=== PATIENT | female | born 1950 | race Caucasian/White ===

== ENCOUNTER 2023-11-09 17:39 | Inpatient (IN) | payer MEDICARE, MEDICAID ==
[~2023-11-09] VITALS: Ht 167.6 cm; Wt 79.4 kg
[~2023-11-09 17:39] MED LIST: ADV100 IH; ALBU8.5H8 IH; AMLO-258 PO; CLON-598 PO; GABA-529 PO; LACT10SO95 PO; PANT20TA PO; SERT-158 PO
[2023-11-09 19:08] LABS: BASOPHILS % (AUTO) 0.5 % (0.0-2.0); EOSINOPHILS % (AUTO) 0.2 % (1.0-6.0); HEMATOCRIT 28.7 % (36-46); HEMOGLOBIN 8.9 g/dL (12.0-16.0); LYMPHOCYTES # (AUTO) 1.4 K/uL (1.0-4.8); LYMPHOCYTES % (AUTO) 15.4 % (22.0-44.0); MEAN CORPUSCULAR HEMOGLOBIN 20.4 pg (26.0-34.0); MEAN CORPUSCULAR VOLUME 66 fL (80-100); MONOCYTES % (AUTO) 10.6 % (2.0-9.0); NEUTROPHILS # (AUTO) 6.6 K/uL (1.8-7.7); NEUTROPHILS % (AUTO) 73.3 % (40.0-70.0); PLATELET COUNT (AUTO) 237 K/uL (150-450); RED BLOOD CELL COUNT(AUTO) 4.37 MIL/uL (4.00-5.20); RED CELL DISTRIBUTION WIDTH 21.8 % (11.5-14.5)
[2023-11-09 19:12] LABS: ANION GAP 12 mmol/L (8-16); CALCIUM, TOTAL 7.7 mg/dL (8.8-10.5); CARBON DIOXIDE 24 mmol/L (22-29); CHLORIDE 94 mmol/L (98-107); CREATININE 1.12 mg/dL (0.60-1.30); GLOMERULAR FILTR. RATE CALC 48 mL/min (>60); GLUCOSE,RANDOM 77 mg/dL (70-110); POTASSIUM 3.6 mmol/L (3.5-5.1); SODIUM SERUM 130 mmol/L (136-145); UREA NITROGEN, BLOOD 19 mg/dL (7-18)
[2023-11-09 19:22] LABS: LACTIC ACID 1.9 mmol/L (0.4-2.0)
[2023-11-09 19:26] LABS: TROPONIN I-HIGH SENSITIVITY 4 ng/L (<51)
[2023-11-09 19:28] LABS: ALANINE AMINOTRANSFERASE 30 U/L (12-78); ALKALINE PHOSPHATASE 87 U/L (46-116); ASPARTATE AMINOTRANSFERASE 39 U/L (15-37); BILIRUBIN,TOTAL 1.4 mg/dL (0.1-1.0); LIPASE < 10 U/L (16-77); TOTAL PROTEIN, SERUM 7.7 g/dL (6.4-8.2)
[2023-11-09 19:35] LABS: COVID AG,FIA SOURCE NASAL SWAB
[2023-11-09 19:36] LABS: APPEARANCE,URINE CLEAR (CLEAR); BILIRUBIN,URINE NEGATIVE (NEGATIVE); COLOR,URINE LIGHT YELLOW (YELLOW); GLUCOSE, URINE (UA) NEGATIVE (NEGATIVE); KETONES,URINE NEGATIVE (NEGATIVE); LEUKOCYTE ESTERASE ,URINE NEGATIVE (NEGATIVE); NITRATE,URINE NEGATIVE (NEGATIVE); OCCULT BLOOD,URINE NEGATIVE (NEGATIVE); PH,URINE 5.5 (5.0-8.0); PROTEIN,URINE NEGATIVE (NEGATIVE); SPECIFIC GRAVITIY, URINE 1.007 (1.003-1.030)
[2023-11-09 19:51] LABS: SARS-COV2 (COVID) ANTIGEN,FIA Negative (Negative)
[2023-11-09 20:00] LABS: BACTERIA,URINE None Seen /HPF (None Seen); RBC,URINE 0-2 /HPF (0-2); SQUAMOUS EPITHELIAL CELL,UR Few /LPF (None Seen); WBC,URINE 0-2 /HPF (0-5)
[2023-11-09] MEDS: ONDANSETRON HCL 4 MG/2 ML VIAL IVP ONE (20:15)
[2023-11-09] MEDS: SODIUM CHLORIDE 0.9% 1,000 ML IV ONE (20:16)
[2023-11-09] MEDS: HYDROmorphone HCL 2 MG/ML SYRINGE IVP ONE (20:16)
[2023-11-09] MEDS ORDERED: ALBUTEROL SULFATE HFA 90 MCG/PUFF 8 GM INHALER IH PRN (21:00)
[2023-11-09] MEDS ORDERED: ONDANSETRON HCL 4 MG/2 ML VIAL IVP PRN (21:00)
[2023-11-09] MEDS: LACTULOSE 20 GM/30 ML SOLUTION UDCUP PO SCH (21:44)
[2023-11-09] MEDS: GABAPENTIN 100 MG CAPSULE PO SCH (21:44)
[2023-11-09] MEDS: DOCUSATE SODIUM 100 MG CAPSULE PO SCH (21:45)
[2023-11-09] MEDS: SODIUM CHLORIDE 0.9% 500 ML IV SCH (21:45)
[2023-11-09 23:15] VITALS: BP 125/57; PULSE 72; RESP 19; TEMP 99.1
[2023-11-09] MEDS: CHLORHEXIDINE GLUCONATE 2% TOWELETTE [2'S/6'S] TP SCH (23:15)
[2023-11-09] MEDS: MORPHINE SULFATE 2 MG/ML SYRINGE IVP PRN (23:16)
[2023-11-10] VITALS (7 sets, daily range): BP systolic 83–118; BP diastolic 52–73; PULSE 63–122; RESP 12–25; TEMP 98.3–99.3
[2023-11-10] MEDS: CefTRIAXone 1 GM/DEXTROSE 50 ML IV SCH (04:57)
[2023-11-10 05:32] LABS: BASOPHILS % (AUTO) 0.5 % (0.0-2.0); EOSINOPHILS % (AUTO) 0.5 % (1.0-6.0); HEMOGLOBIN 9.1 g/dL (12.0-16.0); LYMPHOCYTES # (AUTO) 0.9 K/uL (1.0-4.8); LYMPHOCYTES % (AUTO) 15.7 % (22.0-44.0); MEAN CORPUSCULAR HEMOGLOBIN 20.3 pg (26.0-34.0); MEAN CORPUSCULAR HGB CONC 30.5 G/dL (31.0-37.0); MEAN CORPUSCULAR VOLUME 67 fL (80-100); MONOCYTES # (AUTO) 0.7 K/uL (0.1-1.0); MONOCYTES % (AUTO) 11.8 % (2.0-9.0); NEUTROPHILS % (AUTO) 71.5 % (40.0-70.0); PLATELET COUNT (AUTO) 218 K/uL (150-450); RED BLOOD CELL COUNT(AUTO) 4.49 MIL/uL (4.00-5.20); RED CELL DISTRIBUTION WIDTH 21.6 % (11.5-14.5); WHITE BLOOD COUNT (AUTO) 5.6 K/uL (4.5-11.0)
[2023-11-10 05:41] LABS: CALCIUM, TOTAL 7.7 mg/dL (8.8-10.5); CREATININE 0.92 mg/dL (0.60-1.30); MAGNESIUM 1.8 mg/dL (1.80-2.40); POTASSIUM 3.9 mmol/L (3.5-5.1)
[2023-11-10 06:07] LABS: RBC MORPHOLOGY COMMENT ABNORMAL RBC MORPH
[2023-11-10] MEDS: ClonazePAM 1 MG TABLET PO SCH (08:32)
[2023-11-10] MEDS: AmLODIPine BESYLATE 10 MG TABLET PO SCH (08:33)
[2023-11-10] MEDS: SERTRALINE HCL 50 MG TABLET PO SCH (08:34)
[2023-11-10] MEDS ORDERED: GADOTERATE MEGLUMINE 10 MMOL/20 ML VIAL IVP ONE (09:40)
[2023-11-10] MEDS ORDERED: MEBROFENIN TC99M/MCL ISOTOPE 1 EA INJ INJ ONE (11:10)
[2023-11-10] MEDS: FLUTICASONE/VILANTEROL 200-25 MCG/INH INHALER [14] IH SCH (15:03)
[2023-11-10] MEDS: GuaiFENesin/D-METHORPHAN [SUGAR-FREE] 200-20MG/10 ML SYRUP UDCUP PO PRN (15:03)
[2023-11-10] MEDS: SODIUM CHLORIDE 0.9% 250 ML IV ONE (20:17)
[2023-11-10] MEDS: AMIODARONE HCL 360 MG in DEXTROSE 5%-WATER 242.8 ML IV ONE (20:25)
[2023-11-10] MEDS: AMIODARONE HCL 150 MG in DEXTROSE 5%-WATER 97 ML IV ONE (20:25)
[2023-11-11] VITALS (9 sets, daily range): BP systolic 90–123; BP diastolic 21–70; PULSE 59–88; RESP 20–25; TEMP 98–99.5; O2SAT 93–96
[2023-11-11] MEDS: AMIODARONE HCL 540 MG in DEXTROSE 5%-WATER 239.2 ML IV ONE (02:01)
[2023-11-11 08:15] LABS: BASOPHILS % (AUTO) 0.3 % (0.0-2.0); EOSINOPHILS % (AUTO) 0.6 % (1.0-6.0); HEMATOCRIT 28.9 % (36-46); HEMOGLOBIN 8.8 g/dL (12.0-16.0); LYMPHOCYTES # (AUTO) 0.7 K/uL (1.0-4.8); LYMPHOCYTES % (AUTO) 12.5 % (22.0-44.0); MEAN CORPUSCULAR HEMOGLOBIN 20.4 pg (26.0-34.0); MEAN CORPUSCULAR HGB CONC 30.6 G/dL (31.0-37.0); MEAN CORPUSCULAR VOLUME 67 fL (80-100); MONOCYTES # (AUTO) 0.6 K/uL (0.1-1.0); MONOCYTES % (AUTO) 10.6 % (2.0-9.0); PLATELET COUNT (AUTO) 198 K/uL (150-450); RED BLOOD CELL COUNT(AUTO) 4.33 MIL/uL (4.00-5.20); RED CELL DISTRIBUTION WIDTH 22.3 % (11.5-14.5); WHITE BLOOD COUNT (AUTO) 5.2 K/uL (4.5-11.0)
[2023-11-11 08:16] LABS: ANION GAP 8 mmol/L (8-16); CALCIUM, TOTAL 7.5 mg/dL (8.8-10.5); CARBON DIOXIDE 27 mmol/L (22-29); CHLORIDE 101 mmol/L (98-107); CREATININE 0.76 mg/dL (0.60-1.30); GLOMERULAR FILTR. RATE CALC > 60 mL/min (>60); GLUCOSE,RANDOM 82 mg/dL (70-110); POTASSIUM 3.8 mmol/L (3.5-5.1); SODIUM SERUM 136 mmol/L (136-145); UREA NITROGEN, BLOOD 10 mg/dL (7-18)
[2023-11-11 08:19] LABS: RBC MORPHOLOGY COMMENT ABNORMAL RBC MORPH
[2023-11-11 08:25] LABS: CREATININE,URINE RANDOM 88.1 mg/dL (30.0-125.0)
[2023-11-11 08:28] LABS: ALANINE AMINOTRANSFERASE 25 U/L (12-78); ALBUMIN 2.4 g/dL (3.4-5.0); ALKALINE PHOSPHATASE 78 U/L (46-116); ASPARTATE AMINOTRANSFERASE 36 U/L (15-37); BILIRUBIN,TOTAL 1.2 mg/dL (0.1-1.0)
[2023-11-11] MEDS ORDERED: IPRATROPIUM BROMIDE 0.5 MG/2.5 ML NEB SOLUTION NEB PRN (14:45)
[2023-11-11] MEDS ORDERED: BENZONATATE 100 MG CAPSULE PO SCH (16:00)
[2023-11-11] MEDS: BENZONATATE 100 MG CAPSULE PO SCH ×2 (17:05→21:25)
[2023-11-11] MEDS: ACETAMINOPHEN 325 MG TABLET PO PRN (18:56)
[2023-11-11] MEDS: MethylPREDNISolone SOD SUCC 125 MG/2 ML VIAL IVP SCH (18:58)
[2023-11-11] MEDS ORDERED: AMIODARONE HCL 750 MG in DEXTROSE 5%-WATER 485 ML IV SCH (19:30)
[2023-11-11] MEDS: LEVALBUTEROL 0.63 MG/3 ML NEB SOLUTION NEB SCH (20:00)
[2023-11-11] MEDS: IPRATROPIUM BROMIDE 0.5 MG/2.5 ML NEB SOLUTION NEB SCH (20:00)
[2023-11-11] MEDS: GuaiFENesin SR 600 MG ER TABLET PO SCH (21:25)
[2023-11-11] MEDS: BUDESONIDE 0.5 MG/2 ML NEB SOLUTION NEB SCH (21:55)
[2023-11-12] VITALS (14 sets, daily range): BP systolic 92–106; BP diastolic 51–64; PULSE 49–68; RESP 16–22; TEMP 97.1–97.7; O2SAT 91–99
[2023-11-12] MEDS: MORPHINE SULFATE 2 MG/ML SYRINGE IVP PRN (00:17)
[2023-11-12 05:13] LABS: BASOPHILS % (AUTO) 0.1 % (0.0-2.0); EOSINOPHILS % (AUTO) 0 % (1.0-6.0); HEMATOCRIT 32.9 % (36-46); HEMOGLOBIN 10.1 g/dL (12.0-16.0); LYMPHOCYTES # (AUTO) 0.4 K/uL (1.0-4.8); LYMPHOCYTES % (AUTO) 7.6 % (22.0-44.0); MEAN CORPUSCULAR HEMOGLOBIN 20.7 pg (26.0-34.0); MEAN CORPUSCULAR HGB CONC 30.6 G/dL (31.0-37.0); MEAN CORPUSCULAR VOLUME 68 fL (80-100); MONOCYTES # (AUTO) 0.1 K/uL (0.1-1.0); MONOCYTES % (AUTO) 1.7 % (2.0-9.0); NEUTROPHILS # (AUTO) 5.2 K/uL (1.8-7.7); PLATELET COUNT (AUTO) 266 K/uL (150-450); RED BLOOD CELL COUNT(AUTO) 4.86 MIL/uL (4.00-5.20); RED CELL DISTRIBUTION WIDTH 22.4 % (11.5-14.5); WHITE BLOOD COUNT (AUTO) 5.8 K/uL (4.5-11.0)
[2023-11-12 05:14] LABS: ANION GAP 12 mmol/L (8-16); CALCIUM, TOTAL 7.9 mg/dL (8.8-10.5); CARBON DIOXIDE 24 mmol/L (22-29); CHLORIDE 99 mmol/L (98-107); GLOMERULAR FILTR. RATE CALC > 60 mL/min (>60); GLUCOSE,RANDOM 183 mg/dL (70-110); POTASSIUM 4.2 mmol/L (3.5-5.1); SODIUM SERUM 135 mmol/L (136-145); UREA NITROGEN, BLOOD 13 mg/dL (7-18)
[2023-11-12 06:06] LABS: NEUTROPHILS % (AUTO) 90.6 % (40.0-70.0)
[2023-11-12 07:15] LABS: RBC MORPHOLOGY COMMENT ABNORMAL RBC MORPH
[2023-11-12] MEDS ORDERED: IOHEXOL 350 MG/ML 150 ML VIAL ONE (08:38)
[2023-11-12] MEDS ORDERED: SODIUM CHLORIDE 0.9% 100 ML ONE (08:38)
[2023-11-12] MEDS ORDERED: ALBU18HF12 IH (11:13)
[2023-11-12] MEDS ORDERED: FLUT1BLS18 IH (11:13)
[2023-11-12] MEDS: BISACODYL 10 MG RECTAL RECTAL SUPPOSITORY PR SCH (11:39)
[2023-11-12] MEDS: PANTOPRAZOLE SODIUM 40 MG DR TABLET PO SCH (11:40)
[2023-11-12] MEDS: MethylPREDNISolone SOD SUCC 40 MG/ML VIAL IVP SCH (11:50)
[2023-11-13] VITALS (15 sets, daily range): BP systolic 96–112; BP diastolic 57–63; PULSE 56–72; RESP 16–20; TEMP 97.5–98.1; O2SAT 91–97
[2023-11-13] MEDS ORDERED: SODIUM CHLORIDE 0.9% 500 ML IV ONE (05:02)
[2023-11-13] MEDS ORDERED: IOHEXOL 350 MG/ML 100 ML VIAL ONE (09:26)
[2023-11-13] MEDS ORDERED: SODIUM CHLORIDE 0.9% 100 ML ONE (09:26)
[2023-11-13] MEDS: ACETYLCYSTEINE 10% 100 MG/ML 4 ML NEB SOLUTION NEB SCH (22:55)
[2023-11-14] VITALS (15 sets, daily range): BP systolic 99–125; BP diastolic 51–59; PULSE 51–68; RESP 16–20; TEMP 97–98; O2SAT 92–100
[2023-11-14 07:27] LABS: BASOPHILS % (AUTO) 0.1 % (0.0-2.0); EOSINOPHILS % (AUTO) 0 % (1.0-6.0); HEMOGLOBIN 9.6 g/dL (12.0-16.0); LYMPHOCYTES # (AUTO) 0.2 K/uL (1.0-4.8); LYMPHOCYTES % (AUTO) 3.4 % (22.0-44.0); MEAN CORPUSCULAR HEMOGLOBIN 20.5 pg (26.0-34.0); MEAN CORPUSCULAR HGB CONC 29.9 G/dL (31.0-37.0); MEAN CORPUSCULAR VOLUME 69 fL (80-100); MONOCYTES # (AUTO) 0.1 K/uL (0.1-1.0); MONOCYTES % (AUTO) 1.9 % (2.0-9.0); NEUTROPHILS # (AUTO) 5.7 K/uL (1.8-7.7); PLATELET COUNT (AUTO) 238 K/uL (150-450); RED BLOOD CELL COUNT(AUTO) 4.66 MIL/uL (4.00-5.20)
[2023-11-14 07:36] LABS: NEUTROPHILS % (AUTO) 94.6 % (40.0-70.0)
[2023-11-14 07:37] LABS: RBC MORPHOLOGY COMMENT ABNORMAL RBC MORPH
[2023-11-14 07:43] LABS: ANION GAP 14 mmol/L (8-16); CALCIUM, TOTAL 8.1 mg/dL (8.8-10.5); CARBON DIOXIDE 23 mmol/L (22-29); CHLORIDE 105 mmol/L (98-107); CREATININE 0.85 mg/dL (0.60-1.30); GLOMERULAR FILTR. RATE CALC > 60 mL/min (>60); GLUCOSE,RANDOM 142 mg/dL (70-110); POTASSIUM 3.9 mmol/L (3.5-5.1); SODIUM SERUM 142 mmol/L (136-145); UREA NITROGEN, BLOOD 24 mg/dL (7-18)
[2023-11-14] MEDS: PredniSONE 10 MG TABLET PO SCH (08:45)
[2023-11-14] MEDS: LEVALBUTEROL 0.63 MG/3 ML NEB SOLUTION NEB PRN (16:24)
== END 2023-11-14 17:00 | DRG 189 ==
LOC: EMS 17:45 → ICU 21:42 → 5S 11-12 10:30
PROVIDERS: ADMIT Internal Medicine; ATTEND Internal Medicine
DX: J96.01 Acute respiratory failure with hypoxia (principal); J44.1 Chronic obstructive pulmonary disease with (acute) exacerbation; J98.11 Atelectasis; E87.1 Hypo-osmolality and hyponatremia; R18.8 Other ascites; K80.20 Calculus of gallbladder without cholecystitis without obstruction; I48.91 Unspecified atrial fibrillation; D49.6 Neoplasm of unspecified behavior of brain; K21.9 Gastro-esophageal reflux disease without esophagitis; R05.9 Cough, unspecified; D64.9 Anemia, unspecified; Z20.822 Contact with and (suspected) exposure to COVID-19; F32.9 Major depressive disorder, single episode, unspecified; M54.9 Dorsalgia, unspecified; H53.2 Diplopia; K74.60 Unspecified cirrhosis of liver; Y83.8 Other surgical procedures as the cause of abnormal reaction of the patient, or of later complication, without mention of misadventure at the time of the procedure; Y92.89 Other specified places as the place of occurrence of the external cause; Z79.51 Long term (current) use of inhaled steroids; Z91.041 Radiographic dye allergy status; Z79.899 Other long term (current) drug therapy; Z87.820 Personal history of traumatic brain injury
CPT/HCPCS: 70450; 70496; 71045; 71275; 74176; 76705; 78226; 80048; 80053; 81001; 82140; 82570; 83605; 83690; 83735; 83930; 83935; 84300; 84484; 85025; 87081; 87481; 93005; 94640; 94668; 97110; 97163; 97167; 97530; 97535; 99291; A9537; G0238; J0282; J0696; J1170; J2270; J2405; J2919; J2920; J7030; J7040; J7050; J7060; Q9967; 36415-L1; 36415-TC; J7512; Z7610